=== PATIENT | female | born 1950 | race Caucasian/White ===

== ENCOUNTER 2021-05-07 10:15 | Outpatient (REF) | payer MEDICARE, SELFPAY | END 2021-05-07 10:16 | disposition home or self-care (01) | LOC: HO.HMGCLDS 10:15 | PROVIDERS: PCP Internal Medicine; Visit Provider Internal Medicine | DX: Z20.822 Contact with and (suspected) exposure to COVID-19 (principal) | CPT/HCPCS: C9803; U0003; U0005 ==

== ENCOUNTER 2021-05-08 10:48 | Outpatient (REF) | payer OTHER, MEDICARE, SELFPAY | END 2021-05-08 10:49 | disposition home or self-care (01) | LOC: HO.HMGCLDS 10:48 | PROVIDERS: Visit Provider Internal Medicine | DX: Z20.822 Contact with and (suspected) exposure to COVID-19 (principal) | CPT/HCPCS: C9803; U0003; U0005 ==

== ENCOUNTER 2024-12-21 08:55 | Outpatient (AMB) | payer MEDICARE, SELFPAY ==
--- OUTSIDE RECORDS SUMMARY | 2024-10-09 11:45 | XMS_ITS | Continuity of Care Document ---
Author Organization [facility] Address [address] [place] [address] Phone Care Team Providers Care Linen Worker Name Role Phone Lexx MONTESINOS, RVT, HILARIA, Nehemiah Unavailable U navailable Allergies, Adverse Reactions, Alerts Substance Reaction Status Criticality No Known Allergies Active No Inform ation Medications Medication Instructions Dosage Effective Dates (start - stop) Status Comments warfarin 5 mg tablet take 1 tablet by oral route every day 5 MG - Active albuterol sulfate 2 mg tablet - Active hydrochlorothiazide 12.5 mg capsule - Active metoprolol succinate ER 25 mg tablet,extended release 24 hr - Active lovastatin 10 mg tablet - Active Procedures Procedure Date Office/Outpt E&M Established 25 Mins- CT & [place] Duplex Scan-extrem Veins; Comp- [place] & [place] Duplex Scan-extrem Veins; Uni/ [place] & [place] A Varithena, Single Truncal Vein - [place] & [place] Duplex Scan-extrem Veins; Uni/ [place] & [place] A Varithena, Single Truncal Vein - [place] & [place] Offic/outpt E&m Estab 5 Min Trial- Telem edicine CT & [place] Office/Oupt E&M New Pt 30 Mins- CT & [place] Duplex Scan-extrem Veins; Comp- [place] & [place] Advance Directives Directive Yes / No Effective Date File Name Other Directive No 10/09/2024 N/A WARNING:The information contained in this section is historical and is provided for information only and does not constitute a legal document or any assurance that the information is still accurate. Please verify the information with the blankenship of the legal document before using it for clinical purposes. Encounters Encounter Description Practice Location Reason(s) For Visit Diagnoses Date Provider Providers Copied on Encounter Office/Outpt E&M Established 25 Mins- [place] & [place] [facility] KHANNA, [address] [place] [address] Dr Wiley [address] [place], [id number], [place] tel:[phone] [facility] Chronic venous hypertension (idiopathic) with other complication s of bilateral lower extremityLym phedema, not elsewhere classified 5 Lexx MONTESINOS RVT, RPVI Robert. [address] [place] [address], [place], [place], [id number] , [place]. tel:[phone] Referring Provider: Juanis Crawford MD, [address] [place] [address], [address]. tel:[phone] [facility], [address] [place] [address] Dr Wiley [address], [id number], [place] tel:[phone] [facility] Chronic venous hypertension (idiopathic) with other complication s of bilateral lower extremity 5 Lexx MONTESINOS RVT, RPVI Robert. [address] [place] [address], [place], [place], [id number] , [place]. tel:[phone] Referring Provider: Juanis Crawford MD, [address] [place] [address], [address]. tel:[phone] [facility], [address] [place] [address] Dr Wiley [address] [place], [id number], [place] tel:[phone] [facility] Encounter for follow-up examination after completed treatment for conditions other than malignant neoplasmChro karsten venous hypertension (idiopathic) with other complication s of left lower extremity 5 Lxex MONTESINOS RVT, RPVI Robert. [address] [place] [address], [place], [place], [id number] , [place]. tel:[phone] Referring Provider: Juanis Crawford MD, [address] [place] [address], [id number]. tel:[phone] [place] [address] [facility], [address] [place] [address] [facility] [address], [id number], [place] tel:[phone] [facility] - [place] - [facility] Varicose veins of left lower extremity with other complication s Sep-0 5 Lexx MONTESINOS RVT, HILARIA Cerna. [address] [place] [address], [place], [place], [id number] , [place]. [phone] Referring Provider: Juanis Crawford MD, [address] [place] [address], [address]. tel:[phone] [facility], [address] [place] [address] [facility] [address], [id number], [place] tel:[phone] [facility] [place] [facility] Encounter for follow-up examination after completed treatment for conditions other than malignant neoplasmPain in right leg 0 5 Lexx MONTESINOS RVT, HILARIA Cerna. [address] [place] [address], [facility], [place], [id number] , [place]. [phone] Referring Provider: Juanis Crawford MD, [address] [place] [address], [address]. tel:[phone] [place] [address] [facility], [address] [place] [address] [facility] [address], [id number], [place] tel:[phone] [facility] - [facility] Chronic venous hypertension (idiopathic) with inflammation of right lower extremity Aug-2 5 Lexx MONTESINOS RVT, HILARIA Cerna. [address] [place] [address], [place] [address], [place], [place], [id number] , [place]. [phone] Referring Provider: Juanis Crawford MD, [address] [place] [address], [address]. tel:[phone] [facility], [address] [place] [address] Dr Wiley [address], [id number], tel:[phone] CV - [facility] No Information 5 Lexx MONTESINOS RVT, HILARIA Cerna. [address] [place] [address], [place], [place], [id number] , [place]. tel:[phone] Offic/outpt E&m Estab 5 Min Trial- Telemedicine [place] & [place] [facility], [address] [place] [address] [place] Vergara [place], [id number], [place] tel:[phone] [facility] Chronic venous hypertension (idiopathic) with other complication s of bilateral lower extremityCra mp and spasmPruritu s, unspecified Fe 5 Luis Eduardo Leija . [address] [place] [address], [place], [place], [id number] , [place]. tel:[phone] Referring Provider: Juanis Crawford MD, [address] [place] [address], [address]. tel:[phone] [facility], [address] [place] [address] [place] Vergara [place], [id number], [place] tel:[phone] [facility] No Information 5 Lexx MONTESINOS RVT, RPVI Robert. [address] [place] [address], [place], [place], [id number] , [place]. tel:[phone] Office/Oupt E&M New Pt 30 Mins- [place] & [place] [facility], [address] [place] [address] [place] Vergara [place], [id number], [place] tel:[phone] [facility] of bilateral lower extremities with other complication sPruritus, unspecifiedC ramp and spasmLocaliz ed edema 5 eLxx MONTESINOS RVT, RPVI Robert. [address], [place], [place], [id number] , [place]. [phone] [facility], [address], [place], [id number], [place] tel:[phone] R - [facility] Varicose veins of bilateral lower extremities with pain Lexx MONTESINOS RVT, HILARIA Cerna. [address], [place], [place], [id number] , [place]. [phone] Referring Provider: Nehemiah Hallman MD, RVT, RPVI, [address] [place] [address], [address]. tel:[phone] Family History Family Member Type Diagnosis Age At Onset No Information Payers Payer name Insurance type Covered libertarian ID Authoriza jero(s) [employer] Medicare Advantage [id number] Social History Type Description Quantity Date Captured Comments Alcohol Use Details Unknown Caffeine Use Details Unknown Tobacco Use Status Current non-smoker Smoking Status Never Smoker Non-Smoking Tobacco Use Details : No Details Available : No Details Available Sex Female Vital Signs Date / Time: Height Weight BMI Pulse Rate Blood Pressure Temperature Respiratory Rate Body Surface Area Head Circumference Head Circ. Percentile Wt./Kvng. Percentile BMI percentile Pulse Ox Inhaled Ox 83.460 kg (184.00 lbs) 33.6 9 kg/m eter (2) 134/82 mm[Hg] Chief Complaint And Reason For Visit No Information Reason For Referral Reason For Referral No Information Plan Of Treatment Date Type Action Status Goal Diet education completed Goal Diet education completed Referral Ordered: Weight management: Referral to physician timeframe: 3 Months (related to Body mass index (BMI) 33.0-33.9, adult) ordered Referral Ordered: Weight management: Referral to physician timeframe: 3 Months (related to Body mass index (BMI) 33.0-33.9, adult) ordered History Of Present Illness Encounter Date Complaint History Of Prese nt Illness No Information Functional Status Date Functional Assessmen t No Information Instructions Date Instruction Additional Infor mation Diet education Related to Body mass index (BMI) 33.0-33.9, adult Patient education booklet given Related to Chronic venous hypertension (idiopathic) with other complications of bilateral lower extremity Lifestyle education Related to B didi mass index (BMI) 33.0-33.9, adult Giving Encouragement to exercise Related to Body mass index (BMI) 33.0-33.9, adult Pre and post instruc tions reviewed and provided Related to Chronic venous hypertension (idiopathic) with other complications of bilateral lower extremity Patient education booklet given Related to Chronic venous hypertension (idiopathic) with other complications of bilateral lower extremity Pre and post instruc tions reviewed and provided Related to Varicose veins of bilateral lower extremities with other complications Patient education booklet given Related to Varicose veins of bilateral lower extremities with other complications Lifestyle education Related to B didi mass index (BMI) 33.0-33.9, adult Giving Encouragement to exercise Related to Body mass index (BMI) 33.0-33.9, adult Diet education Related to Body mass index (BMI) 33.0-33.9, adult Assessments Type Assessment Date No Information Patient Care Teams Name Effective Dates (start - stop) Status Members No Information
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
--- OUTSIDE RECORDS SUMMARY | 2024-12-21 08:59 | XMS_ITS | Patient Health Record ---
Author Organization [facility] Address [address] [place] [phone] Care Team Providers Care Business Development Consultant Name Role Phone Nehemiah Sanford Unavailable [phone] Reason For Referral No Information Plan Of Treatment No Information
--- OUTSIDE RECORDS SUMMARY | 2024-12-21 08:59 | XMS_ITS | Patient Health Record ---
Author Organization [facility] Vinnie hallman [place] Address [address] [facility] [place] [address] Care Team Providers Care Quality Assurance Monitor Body Name Role Phone Juanis Crawford Primary Care Provider Unav ailable Black, Dacia Unavailable [phone] Allergies No Known Allergies Reason For Referral No Information Medications Medication SIG (Take, Route, Frequency, Duration) Notes Start Date End Date Status hydroCHLOROthiazide 25 MG 1 tablet in th e morning Orally Once a day Active Warfarin Sodium 5 MG 1 tablet Orally Onc e a day Active Lisinopril 40 MG 1 tablet Orally Once a day Active Ammonium Lactate 12 % 1 application Exte rnally Twice a day; Duration: 30 days Active Metoprolol Succinate 50 MG 1 capsule Ora lly Once a day Active Lovastatin 20 MG 1 tablet with the ev ening meal Orally Once a day Active Immunizations Vaccine Route Administration Date Status Comme nts Influenza Unknown 04/06/2024 Administered Social History Tobacco Use: Social History Observation Description Date Details (start date - stop date) Never Smoker NA - NA Tobacco Use/Smoking Question Answer Notes Are you a: nonsmoker Alcohol Screen Question Answer Notes Did you have a drink containing alcohol in the p ast year? No Points 0 Interpretation Negative Tobacco use other than smoking: Question Answer Notes Are you an other tobacco user? No Vital Signs Blood pressure diastolic 80 mm Hg 11/26/2024 Height 5ft2.5in in 11/26/2024 Blood pressure systolic 125 mm Hg 11/26/2024 Weight 195 lbs 11/26/2024 BMI 35.09 kg/m2 11/26/2024 Procedures Procedure Date Ordered Date Performed Result Body Sit e 12995-HYEPLGW NAIL, 6 OR MORE 02/16/2024 N/A 80496-Nfnhcjad Plate 02/16/2024 N/A 09451-ZXKQCGF NAIL, 6 OR MORE 05/21/2024 N/A 44704-Jbljioec Plate 05/21/2024 N/A 32876-SPCNYDT NAIL, 6 OR MORE 11/26/2024 N/A 32880-Nkerodvm Plate 11/26/2024 N/A Encounters Encounter Location Date Provider Diagnosis [address] [address] 02/16/2024 Dacia Black Pain in right toe(s) M79.674 ; Ingrown nail L60.0 ; Pain in left toe(s) M79.675 ; Xerosis of skin L85.3 and Tinea unguium B35.[address] [address] 05/21/2024 Dacia Black Pain in right toe(s) M79.674 ; Ingrown nail L60.0 ; Pain in left toe(s) M79.675 and Tinea unguium B35.[address] [address] 11/26/2024 Dacia Black Pain in right toe(s) M79.674 ; Ingrown nail L60.0 ; Pain in left toe(s) M79.675 and Tinea unguium B35.1 Assessments Encounter Date Diagnosis (ICD Code) Assessment Notes Treatment Notes Treatment Clinical Notes Section Notes 02/16/2024 Pain in right toe(s) (ICD-10 - M79.674) 05/21/2024 Pain in right toe(s) (ICD-10 - M79.674) 11/26/2024 Pain in right toe(s) (ICD-10 - M79.674) 11/26/2024 Ingrown nail (ICD-10 - L60.0) 05/21/2024 Pain in left toe(s) (ICD-10 - M79.675) 05/21/2024 Ingrown nail (ICD-10 - L60.0) 02/16/2024 Pain in left toe(s) (ICD-10 - M79.675) 02/16/2024 Ingrown nail (ICD-10 - L60.0) 02/16/2024 Xerosis of skin (ICD-10 - L85.3) 05/21/2024 Tinea unguium (ICD-10 - B35.1) 11/26/2024 Pain in left toe(s) (ICD-10 - M79.675) 11/26/2024 Tinea unguium (ICD-10 - B35.1) 02/16/2024 Tinea unguium (ICD-10 - B35.1) Plan Of Treatment Pending Test Test Name Order Date 88435-WINTERN NAIL, 6 OR MORE 07/21/2023 35284-XBDULSS NAIL, 6 OR MORE 10/24/2023 09852-XLQMDTX NAIL, 6 OR MORE 02/16/2024 65802-IKZNMMK NAIL, 6 OR MORE 05/21/2024 61781-IQIUXKG NAIL, 6 OR MORE 11/26/2024 64206-Sbkratvo Plate 11/26/2024 90261-Xbzuobie Plate 05/21/2024 00751-Uzmhlejj Plate 02/16/2024 32931-Aujuphhp Plate 10/24/2023 Nail Panel 07/21/2023 Next Appt Details Provider Name:Dacia Valenzuela , 02/25/2025 02:30:00 PM, [address] [facility], [place], [address], Insurance Providers Payer Name Payer Address Payer Phone Subscriber Number Group Number Insured Name Patient Relationship to Insured Coverage Start Date Coverage End Date [employer] Medicare [id number] [address] [address] [place] [address] [id number] Ghazala Ruano Self - patient is the insured Medical (General) History Medical History History ICD Code Back,Hip,and Knee pain CAD (Cholesterol) covid-19 Headaches/Migraines Heart disease High blood pressure Warts Measles A fib Other hammer toe(s) (acquired), right fo ot M20.41 Arthritis of joint of lesser toe, right M19.071 Other hammer toe(s) (acquired), left lilibeth t M20.42 Arthritis of joint of lesser toe, left M 19.072 Surgical History Surgery Date(Month/Year) Heart procedure 03/29
[2024-12-21 09:35] VITALS: BP 122/100; PULSE 64; TEMP 36.4; O2SAT 98; BMI 33.8
--- NOTE | 2024-12-21 09:35 | MHC.OFFWIV ---
Intake Vital Signs 12/21/24 09:35 12/21/24 09:42 Height 5 ft 2.5 in Weight 188 lb BMI 33.8 BP 122/100 H 130/90 H Blood Pressure Location Rt brachial Lt brachial Position Sitting Sitting Pulse 64 Pulse Source Pulse Oximeter Temp 97.6 F Temp Source Oral Pulse Oximetry (%) 98 Oxygen Delivery Method Room Air Intake Visit Reasons: EP Upper RT thigh/back pain Intake Note: presents with right leg pain radiating up to right hip and into right low back Patient Tobacco Use Status: Never used Tobacco Allergies No Known Allergies Allergy (Verified 12/21/24 09:36) HPI EP Upper RT thigh/back pain HPI Details This is a 74-year-old female patient who presents to the walk-in clinic today with a 1-2 week history of right buttock and right leg pain. She cannot recall any injury or inciting event. Reports some lateral thigh pain which seems to radiate into her right buttock. Denies any saddle anesthesia. Denies any numbness, weakness or sensation of pins/needles in leg. [facility] Social History Patient Tobacco Use Status: Never used Tobacco Review of Systems Const All systems reviewed & are unremarkable except as noted in HPI and below Physical Exam Vital Signs: Last Vital Signs Temp 97.6 F 12/21/24 09:35 Pulse 64 12/21/24 09:35 BP 124/100 H 12/21/24 09:42 Pulse Ox 98 12/21/24 09:35 Oxygen Delivery Method Room Air 12/21/24 09:35 BMI result Body Mass Index 33.8 Const General: cooperative, healthy appearing, comfortable and no acute distress HEENT Head: Yes normal to inspection Resp Effort & Inspection: normal respiratory effort General: Yes no CVA tenderness Back/Spine/Pelvis Back: no CVA tenderness Cervical Spine: normal cervical lordosis and cervical ROM normal Thoracic/Lumbar Spine: thoracic and lumbar spine normal to inspection, thoraco-lumbar ROM normal and straight leg raise negative bilaterally Sacroiliac joints: on the right tender to palpation and by compression of iliac crest Skin General skin exam: no rashes or lesions noted Neuro Other: gait mildly antalgic General: Normal light touch and pain sensation and deep tendon reflexes 2+ bilaterally Extrem Right lower extremity: full ROM, normal capillary refill, no joint enlargement, hip/thigh Details: normal to inspection and normal ROM and knee Details: normal to inspection and normal ROM Psych Appearance: grossly normal Mental Status: mental status grossly normal Speech and movement: Normal speech and movement present Assessment & Plan Assessment & Plan (1) Inflammation of right sacroiliac joint: Code(s): M46.1 - Sacroiliitis, not elsewhere classified Plan: Patient does have some right sacroiliac joint dysfunction on the right side. It is unclear if this is the source of her radiating right thigh pain. It does not appear to be a lumbar radiculopathy. Additionally, her hip and knee exams are normal. She does not wish to have any x-rays today. I provided her with some conservative measures to take, including the SI joint stretches/exercises to do at home. She can also try ice application and also Tylenol (cannot take NSAIDs). She has a PCP appointment next month and will f/u on these issues at that time if they are still ongoing. Should they worsen in the meantime, she can return to the clinic for further evaluation. Patient verbalizes understanding and agrees to plan discussed today. Coding Level of Care Code Est Pt Level 4 (59691) Diagnoses Inflammation of right sacroiliac joint M46.1
[2024-12-21 09:42] VITALS: BP 130/90
== END 2024-12-21 10:24 | disposition home or self-care (01) ==
PROVIDERS: PCP Family Medicine; Visit Provider Nurse Practitioner Family
DX: M46.1 Sacroiliitis, not elsewhere classified (principal)

== ENCOUNTER → 2024-12-21 08:55 | Outpatient (BNVA) | payer MEDICARE, SELFPAY | PROVIDERS: PCP Family Medicine | DX: M46.1 Sacroiliitis, not elsewhere classified (principal) | CPT/HCPCS: 99212 ==

== ENCOUNTER 2025-03-11 09:47 | Outpatient (AMB) | payer MEDICARE, SELFPAY ==
--- OUTSIDE RECORDS SUMMARY | 2024-08-27 06:00 | XMS_ITS ---
Author Organization [facility] Address [address] [place] [address] Care Team Providers Care Scale Clerk Name Role Phone Juanis Crawford Primary Care Provider Unav ailable Dacia Valenzuela Unavailable [phone] Lynch Encounters Encounter Location Date Provider Diagnosis [address] [address] 08/27/2024 Dacia Valenzuela Plan Of Treatment Next Appt Details Provider Name:Dacia Valenzuela , 07/01/2025 01:30:00 PM, [address] [place] [address], [phone], Progress Notes * Ghazala RUANODOB: (74 yo F)Acc No.[id number]:08/27/2024 Progress Note Patient: Ghazala GREY Provider: Everett Valenzuela DPM :1950 A ge:74 Y S ex:Female Date:08/27/2024 Address:[address], [place] Pcp:Juanis Crawford Subjective: * Chief Complaints: * [address] Lynch[address] * Medical History: Objective: * Vitals: Assessment: Plan: * Treatment: * Images: * The named appointment provid er may or may not be the originator of this progress note, and it is not deemed complete until electronically signed by the appointment provider. Sign off status: Pending * Provider: Everett Valenzuela DPM Date: 0 08/27/2024 Generated for Roslyn enrqiuez/Farrah/Abdirahman on: 1 11:13 AM EDT
[2025-03-11 10:44] VITALS: BP 146/90; PULSE 83; TEMP 36.4; O2SAT 97; BMI 33.8
--- NOTE | 2025-03-11 10:44 | AM.OFFWIN_ITS ---
Intake Vital Signs 03/11/25 10:44 Height 5 ft 2.5 in Weight 188 lb BMI 33.8 BP 146/90 H Blood Pressure Location Rt brachial Position Sitting Pulse 83 Pulse Source Pulse Oximeter Temp 97.6 F Temp Source Oral Pulse Oximetry (%) 97 Oxygen Delivery Method Room Air Intake Visit Reasons: EP-sciatica pain Intake Note: pt presents with bilateral sciatica pain for 1 month Patient Tobacco Use Status: Never used Tobacco Allergies No Known Allergies Allergy (Verified 03/11/25 10:50) Do you need a note to return to daycare/school/sports/work: No HPI HPI Comments History of Present Illness Details 74 y/o Female patient who presents to [facility] in clinic with c/o Lower back pain associated with B/L Sciatica Pain x 1 month. Her PCP at [facility] has Ordered an MRI for Tomorrow. She did not want to wait until tomorrow for the MRI due to severe pain. She has been taking OTC pain relief medications with no much relief. Denies injury or trauma to the back. Denies Numbness or tingling. Denies Bowel or bladder symptoms. [facility] Medical History (Updated 03/11/25 @ 11:10 by Adore Simpson NP) Chronic back pain Social History Patient Tobacco Use Status: Never used Tobacco Review of Systems Const All systems reviewed & are unremarkable except as noted in HPI and below Physical Exam Vital Signs: Last Vital Signs Temp 97.6 F 03/11/25 10:44 Pulse 83 03/11/25 10:44 BP 146/90 H 03/11/25 10:44 Pulse Ox 97 03/11/25 10:44 Oxygen Delivery Method Room Air 03/11/25 10:44 BMI result Body Mass Index 33.8 Const General: no acute distress Nutritional Appearance: obese Orientation/consciousness: patient oriented x3 Limitations: ambulation with cane Back/Spine/Pelvis Back: back tenderness Thoracic/Lumbar Spine: pain with thoraco-lumbar ROM, thoracic spinal tenderness and lumbar spinal tenderness Neuro General: patient oriented x3, gait normal (Walks with a Cane.) and moves all extremities Psych Speech and movement: Normal speech and movement present Assessment & Plan Assessment & Plan (1) Chronic back pain: Code(s): M54.9 - Dorsalgia, unspecified; G89.29 - Other chronic pain Plan: Acetaminophen and NSAIDs for pain relief Ice/Heat Rest Back F/u with PCP for the MRI and possible PT. Coding Level of Care Code Est Pt Level 4 (03245) Diagnoses Chronic back pain M54.9; G89.29 Time Spent (min) 20
--- OUTSIDE RECORDS SUMMARY | 2025-03-11 11:13 | XMS_ITS | Encounter Summary ---
Author Organization [facility] Address [address] [place] [address] Care Team Providers Care Activity Leader Name Role Phone Juanis Crawford MD Primary Care Pr ovid Reason for Visit * Reason Onset Date Comments Medication Problem 03/08/2025 Encounter Details Date Type Department Care Team ([facility] Contact Info) Description 03/08/2025 Telephone Adult Medicine [address] [address] Sri James MA Social History Tobacco Use Types Packs/Day Years Used Date Smoking Tobacco: Never Passive Smoke Exposure: Never Smokeless Tobacco: Never Alcohol Use Standard Drinks/Week Comments Never 0 (1 standard drink = 0.6 oz pur e alcohol) Comments No Sex and Gender Information Value Date Recorded Sex Assigned at Not on file Legal Sex Female 5:47 PM EST Gender Identity Not on file Sexual Orientation Not on file documented as of this encounter Progress Notes * Sri James MA - 03/08/2025 9:47 AM EDT Medication Problem: What is the name of the medication patient is having a problem with?: TYLENOL 500 MG What is the problem?: Tylenol is not working for her Sciatica Pain Who is calling about the problem? : The patient Is this a NEW medication?: no How long has the patient been taking this medication? A long time Who prescribed this medication for the patient? pcp Who is patients PCP?: Juanis Crawford MD Payor: [employer] MEDICARE / Plan: [facility] MEDIC[facility] ADVANTAGE / Product Type: *No Product type* / documented in this encounter Plan of Treatment Upcoming Encounters Date Type Department Care Team (Late st Contact Info) Description 03/14/2025 1:40 PM EDT Anticoagulation - Warfarin Visit Coumadin Clinic - [address] [phone] 05/20/2025 9:00 AM EST Office Visit Adult Medicine [facility] - [address] [phone] Juanis Crawford MD [address] [place] [address] 07/10/2025 10:00 AM EST Appointment Radiology Department - [address] [phone] documented as of this encounter Visit Diagnoses Not on filedocumented in this encounter Care Teams Activity Leader Relationship Specialty Start Date End Date uJanis Crawford MD [address] [place] [address] PCP - General 08/05/22 documented as of this encounter
--- OUTSIDE RECORDS SUMMARY | 2025-03-11 11:13 | XMS_ITS ---
[facility] Care Team Organization Name Specialty Phone Email Start Date End Da te [facility] JUAN ABHIJEET Primary Care 04/13/2022 4
--- OUTSIDE RECORDS SUMMARY | 2025-03-11 11:13 | XMS_ITS | Patient Health Record ---
Author Organization [facility] Vinnie Garcialey Address [address] [facility] [place] [address] Care Team Providers Care In Store Banker Name Role Phone Juanis Crawford Primary Care Provider Unav ailable Black, Dacia Unavailable [phone] Allergies No Known Allergies Reason For Referral No Information Medications Medication SIG (Take, Route, Frequency, Duration) Notes Start Date End Date Status Ammonium Lactate 12 % 1 application Exte rnally Twice a day; Duration: 30 days Active Warfarin Sodium 5 MG 1 tablet Orally Onc e a day Active Metoprolol Succinate 50 MG 1 capsule Ora lly Once a day Active Lovastatin 20 MG 1 tablet with the ev ening meal Orally Once a day Active Lisinopril 40 MG 1 tablet Orally Once a day Active hydroCHLOROthiazide 25 MG 1 tablet in th e morning Orally Once a day Active Immunizations Vaccine Route Administration Date Status Comme nts Influenza Unknown 04/06/2024 Administered Social History Tobacco Use: Social History Observation Description Date Details (start date - stop date) Never Smoker NA - NA Alcohol Screen Question Answer Notes Did you have a drink containing alcohol in the p ast year? No Points 0 Interpretation Negative Tobacco use other than smoking: Question Answer Notes Are you an other tobacco user? No Tobacco Control (Standard) Question Answer Notes Tobacco use: Nonsmoker Additional Findings: Tobacco non-user Current no nsmoker AUDIT-C (Standard) Question Answer Notes Did you have a drink containing alcohol in the p ast year? No Points 0 Interpretation Negative Problems Problem Type SNOMED Code ICD Code Onset Dates Problem Status W/U Status Risk Notes Problem Plantar wart (86911942) Plantar wart (B07.0) Active confirmed Vital Signs Blood pressure diastolic 70 mm Hg 02/25/2025 Height 5ft 2.5in in 02/25/2025 Blood pressure systolic 127 mm Hg 02/25/2025 Weight 187 lbs 02/25/2025 BMI 33.65 kg/m2 02/25/2025 Procedures Procedure Date Ordered Date Performed Result Body Sit e 58207-KJPBKUC NAIL, 6 OR MORE 05/21/2024 N/A 48977-Oddziphm Plate 05/21/2024 N/A 43597-WRXLGEM NAIL, 6 OR MORE 11/26/2024 N/A 21223-Lrqkunod Plate 11/26/2024 N/A 95687-YPUWYIM NAIL, 6 OR MORE 02/25/2025 N/A 99775-Klnu Destruction, 1-14 02/25/2025 N/A Encounters Encounter Location Date Provider Diagnosis [address] [address] 05/21/2024 Dacia Black Pain in right toe(s) M79.674 ; Ingrown nail L60.0 ; Pain in left toe(s) M79.675 and Tinea unguium B35.[address] [address] 11/26/2024 Dacia Black Pain in right toe(s) M79.674 ; Ingrown nail L60.0 ; Pain in left toe(s) M79.675 and Tinea unguium B35.[address] [address] 02/25/2025 Dacia Black Pain in right toe(s) M79.674 ; Pain in left toe(s) M79.675 ; Tinea unguium B35.1 and Plantar wart B07.0 Assessments Encounter Date Diagnosis (ICD Code) Assessment Notes Treatment Notes Treatment Clinical Notes Section Notes 05/21/2024 Pain in right toe(s) (ICD-10 - M79.674) 11/26/2024 Pain in right toe(s) (ICD-10 - M79.674) 02/25/2025 Pain in right toe(s) (ICD-10 - M79.674) 02/25/2025 Pain in left toe(s) (ICD-10 - M79.675) 11/26/2024 Ingrown nail (ICD-10 - L60.0) 05/21/2024 Pain in left toe(s) (ICD-10 - M79.675) 05/21/2024 Ingrown nail (ICD-10 - L60.0) 05/21/2024 Tinea unguium (ICD-10 - B35.1) 11/26/2024 Pain in left toe(s) (ICD-10 - M79.675) 02/25/2025 Tinea unguium (ICD-10 - B35.1) 11/26/2024 Tinea unguium (ICD-10 - B35.1) 02/25/2025 Plantar wart (ICD-10 - B07.0) Plan Of Treatment Pending Test Test Name Order Date 52090-BICADYZ NAIL, 6 OR MORE 07/21/2023 94449-RNBJVRQ NAIL, 6 OR MORE 10/24/2023 98928-DSTEDAR NAIL, 6 OR MORE 02/16/2024 91203-VHTPVBA NAIL, 6 OR MORE 05/21/2024 60355-NQIPIIG NAIL, 6 OR MORE 11/26/2024 16414-ILSGGZS NAIL, 6 OR MORE 02/25/2025 92853-Ylof Destruction, 1-14 02/25/2025 99458-Bwiopyly Plate 11/26/2024 39726-Xrtvihbv Plate 05/21/2024 14938-Axobjbid Plate 02/16/2024 13958-Jzznfvvg Plate 10/24/2023 Nail Panel 07/21/2023 Next Appt Details Provider Name:Dacia Valenzuela , 07/01/2025 01:30:00 PM, [address] [facility], [place], [address], Insurance Providers Payer Name Payer Address Payer Phone Subscriber Number Group Number Insured Name Patient Relationship to Insured Coverage Start Date Coverage End Date [employer] Medicare [id number] [address] [address] [place] [address] [id number] Ghazala Ruano Self - patient is the [...]
--- OUTSIDE RECORDS SUMMARY | 2025-03-11 11:13 | XMS_ITS | Clinical Summary ---
Author Organization [address] [facility] Address [address] [place] [address] Phone Care Team Providers Care Health Education Director Name Role Phone Juanis Crawford MD Primary Care Pr ovider Allergies Active Allergy Reactions Criticality Noted Date Comments Pollen Extracts 11/16/2017 Seasonal Medications calcium carbonate/vitam in D3 (CALCIUM 600 + D,3, ORAL) 2 tabs daily 09/04/19 08 Active albuterol HFA (PROAIR HFA ; PROVENTIL HFA ; VENTOLIN HFA) 90 mcg/actuation inhaler Inhale 2 puffs by mouth every 6 (six) hours if needed for wheezing. Active warfarin (COUMADIN) 5 mg tablet TAKE ONE TABLET BY MOUTH EVERY DAY AT THE SAME TIME EVERY DAY. MAY CAUSE HEAVY BLEEDING. DO NOT CHANGE DIETARY HABITS (VIAL) 30 tablet 5 06/06/19 25 Active Additional Information Patient taking differently: Managed by [facility], Informant: Self, Reported on 02/22/2025 hydroCHLOROthia zide (HYDRODIURIL) 25 mg tablet TAKE ONE TABLET BY MOUTH EVERY DAY ^1R1 30 tablet 5 12/05/19 25 Active lisinopril (PRINIVIL,ZESTR IL) 40 mg tabletIndicatio ns:Primary hypertension Take 1 tablet (40 mg total) by mouth 1 (one) time each day. 90 each 1 01/18/20 25 026 Active metoprolol succinate (TOPROL-XL) 50 mg 24 hr tabletIndicatio ns:Primary hypertension,At rial flutter, unspecified type (CMS/HCC V24, CMS/HCC V28),Atrial fibrillation, unspecified type (CMS/HCC V24, CMS/HCC V28) Take 1 tablet (50 mg total) by mouth 1 (one) time each day. Do not crush or chew. 90 each 1 01/18/20 25 026 Active acetaminophen (TYLENOL) 500 mg tablet Take 2 tablets (1,000 mg total) by mouth every 6 (six) hours if needed. 01/22/20 25 Active lovastatin (MEVACOR) 20 mg tablet TAKE ONE TABLET BY MOUTH AT BEDTIME ^1R4 30 tablet 5 03/08/20 25 Active lovastatin (MEVACOR) 20 mg tablet TAKE ONE TABLET BY MOUTH AT BEDTIME ^1R4 90 tablet 1 10/11/19 25 025 Discontinued Active Problems Problem Noted Date Diagnosed Date Acute midline low back pain without sciatica 07/2024 Assessment & Plan (02/05/2025 4:10 PM EDT): Ms. Ruano describes acute on chronic midline low back pain without radiation to the legs. She denies any significant leading up to the increase in pain trauma. She is neurologically intact and has pain with palpation from L3-L5. She ambulates with the aid of a quad cane that she says she does not need for balance but using it does aleviate her back pain. X-rays of the lumbar spine from [facility] dated January 17, 2025 raise the question of the superior endplate compression fracture at L3. She is scheduled for a bone density scan later this week. We talked about compression fractures and the possibility of treatment with a kyphoplasty if the fracture was acute or subacute. I will order an MRI to determine the acuity of the compression fracture and otherwise evaluate her back pain. I told her I would be in touch once the results were available. Compression fracture of L3 lumbar vertebra, sequ иван 01/18/2025 Spinal stenosis of lumbar re gion with neurogenic claudication 01/18/2025 Primary osteoarthritis of right hip 01/18/2025 Venous insufficiency (chronic) (peripheral) 01/04 Assessment & Plan (01/17/2025 1:51 PM EDT): Continue compression stockings prison (current) use of anticoagulants 2023 Restrictive lung disease 03/13/2024 Assessment & Plan (01/17/2025 1:51 PM EDT): Continue albuterol as needed Atrial flutter (CMS/HCC V24, CMS/HCC V28) 2022 Assessment & Plan (01/17/2025 1:51 PM EDT): Continue metoprolol and Coumadin. She has an appointment with the Coumadin clinic today. She will follow-up with cardiology as scheduled next month Orders: metoprolol succinate (TOPROL-XL) 50 mg 24 hr tablet; Take 1 tablet (50 mg total) by mouth 1 (one) time each day. Do not crush or chew. Atrial fibrillation (CMS/HCC V24, CMS/HCC V28) 1 Overview (04/24/2024): Anticoagulated with Coumadin Assessment & Plan (01/17/2025 1:51 PM EDT): Continue metoprolol and Coumadin. She has an appointment with the Coumadin clinic today. She will follow-up with cardiology as scheduled next month Orders: metoprolol succinate (TOPROL-XL) 50 mg 24 hr tablet; Take 1 tablet (50 mg total) by mouth 1 (one) time each day. Do not crush or chew. Assessment & Plan (06/18/2024 11:13 AM EST): [...] the future. Hyperlipidemia 07/28/2009 Assessment & Plan (01/17/2025 1:51 PM EDT): Continue lovastatin 20 mg nightly. Due for labs which are ordered Orders: Lipid panel with reflex to direct LDL; Future Comprehensive metabolic panel; Future Assessment & Plan (04/24/2024 12:02 PM EST): Well-controlled lipid profile on current dose lovastatin without known coronary artery disease. Continue Hypertension 04/18/2009 Assessment & Plan (01/17/2025 1:51 PM EDT): Well-controlled. Continue lisinopril, metoprolol and hydrochlorothiazide 25 mg daily Orders: lisinopril (PRINIVIL,ZESTRIL) 40 mg tablet; Take 1 tablet (40 mg total) by mouth 1 (one) time each day. metoprolol succinate (TOPROL-XL) 50 mg 24 hr tablet; Take 1 tablet (50 mg total) by mouth 1 (one) time each day. Do not crush or chew. Assessment & Plan (06/18/2024 11:13 AM EST): [...] inhibitor and diuretic. Increase beta-yolie as below Obesity (BMI 30.0-34.9) 09/17/2008 Overview (08/04/2023): Last Assessment & Plan: [...] As well as directed her to the [place] [employer] website for dietary suggestions. We discussed reading labels following a low-sodium diet as well as avoiding simple carbohydrates and processed foods. Primary osteoarthritis of right knee 09/17/2008 Encounters Date Type Department Care Team Description 03/08/2025 Telephone Adult Medicine [address] [phone] Sri James MA 02/22/2025 1:30 PM EDT Office Visit [facility] [address] [facility] [address] [place] [address] Thais Helm MD Longstanding persistent atrial fibrillation (CMS/HCC V24, CMS/HCC V28) (Primary Dx); Pure hypercholesterolemia ; Primary hypertension; Venous insufficiency (chronic) (peripheral) 02/14/2025 1:40 PM EDT Anticoagulation - Warfarin Visit [facility] - [address] [phone] Atrial fibrillation, unspecified type (CMS/HCC V24, CMS/HCC V28) (Primary Dx); prison (current) use of anticoagulants 02/13/2025 2:21 PM EDT - 02/13/2025 11:59 PM EDT Hospital Encounter Bone Density - [address] [phone] Osteoporosis screening; Asymptomatic menopausal state Discharge Disposition: Home or Self Care 02/05/2025 2:30 PM EDT Consult Neurosurgery [place] [address] [phone] Tien Luque PA Acute midline low back pain without sciatica (Primary Dx); Compression fracture of L3 lumbar vertebra, sequela 01/18/2025 Telephone Adult Medicine [address] [phone] Juanis Crawford MD 01/17/2025 2:20 PM EDT - 01/17/2025 11:59 PM EDT Hospital Encounter XRAY - [address] [phone] Chronic right-sided low back pain with right-sided sciatica Discharge Disposition: Home or Self Care 01/17/2025 2:19 PM EDT - 01/17/2025 11:59 PM EDT Hospital Encounter XRAY [address] [phone] Right hip pain Discharge Disposition: Home or Self Care 01/17/2025 2:19 PM EDT - 01/17/2025 11:59 PM EDT Hospital Encounter XRAY [address] [phone] Chronic pain of right knee Discharge Disposition: Home or Self Care 01/17/2025 1:40 PM EDT Anticoagulation - Warfarin Visit Coumadin [address] [phone] Atrial fibrillation, unspecified type (CMS/HCC V24, CMS/HCC V28) (Primary Dx); prison (current) use of anticoagulants 01/17/2025 12:45 PM EDT Office Visit [address] [phone] Juanis Crawford MD Primary hypertension (Primary Dx); Atrial flutter, unspecified type (CMS/HCC V24, CMS/HCC V28); Atrial fibrillation, unspecified type (CMS/HCC V24, CMS/HCC V28); Mixed hyperlipidemia; Restrictive lung disease; Chronic right-sided low back pain with right-sided sciatica; Right hip pain; Chronic pain of right knee; Osteoporosis screening; Asymptomatic menopausal state; Venous insufficiency (chronic) (peripheral) 01/17/[address] [phone] Juanis Crawford MD 12/31/2024 2:30 PM EDT Anticoagulation - Warfarin Visit [facility] [address] [phone] Atrial fibrillation, unspecified type (CMS/HCC V24, CMS/HCC V28) (Primary Dx); manager terminal (current) use of anticoagulants 12/17/2024 2:30 PM EDT Anticoagulation - Warfarin Visit Coumadin [address] [phone] Atrial fibrillation, unspecified type (CMS/HCC V24, CMS/HCC V28) (Primary Dx); prison (current) use of anticoagulants 12/10/2024 2:30 PM EDT Anticoagulation - Warfarin Visit Coumadin [address] [phone] Atrial fibrillation, unspecified type ([facility] V24, [facility] V28) (Primary Dx); prison (current) use of anticoagulants from Last 3 Months Immunizations Immunization Administration Dates Next Due Influenza Quadravalent, MDCK [...] Site/Laterality Comments CARDIOVERSION DONE ON 03/16/2024 AT [facility] CR INDICATIONS:AFIB Medical History Medical History Date Comments Obstructive sleep apnea syndrome 01/30/2024 [place] [place] [facility] [place] 1 Atrial flutter ([facility] V24, [facility] V28) 2022 Hyperlipidemia 07/28/2009 Hypertension 04/18/2009 Obesity [...] Sign Reading Time Taken Comments Blood Pressure 124/72 02/22/2025 1:19 PM EDT Pulse 87 02/22/2025 1:19 PM EDT Temperature 36.9 C (98.5 F) 01/17/2025 1:02 PM EDT Respiratory Rate 16 01/17/2025 1:02 PM EDT Oxygen Saturation 97% 02/22/2025 1:19 PM EDT Inhaled Oxygen Concentration - - Weight 86.1 kg (189 lb 12.8 oz) 02/22/2025 1:19 PM EDT Height 157.5 cm (5' 2 ) 02/22/2025 1:19 PM EDT Body Mass Index 34.71 02/22/2025 1:19 PM EDT Plan of Treatment Upcoming Encounters Date Type Department Care Team (Late st Contact Info) Description 03/14/2025 1:40 PM EDT Anticoagulation - Warfarin Visit Coumadin [address] [phone] 05/20/2025 9:00 AM EST Office Visit Adult Medicine [address] [phone] Juanis Crawford MD [address] [place] [phone] 07/10/2025 10:00 AM EST Appointment Radiology Department - [address] [phone] Health Maintenance Due Date Last Done Comments Zoster Vaccines (1 of 2) 2000 Falls Risk Assessment 05/15/2022 Medicare Annual Wellness Visit 05/15/2022 Social Influencers of Health Screening 05/15/2022 Depression Screening 06/06/2024 COVID-19 Vaccine ( season) 2025 06/15/2024, 03/22/2023, 07/24/2022, Additional history exists Influenza Vaccine (#1) 2025 , 02/18/2023, 07/07/2022, Additional history exists RSV Immunization Adult Patients (1 - 1-dose 75+ series) 2025 Hypertension/CHF/CAD Annual BMP Blood Test 01/17/2026 01/17/2025, 03/09/2024, 03/09/2024, Additional history exists Colorectal Cancer Screening: Colonoscopy 01/20/2026 01/21/2016 Breast Cancer Screening 07/07/2026 07/07/19, 06/11/2023, 06/05/2022, Additional history exists Cholesterol Screening (Lipid Panel) 01/17/2030 01/17/2025, 02/10/2024, 02/10/2024, Additional history exists DTaP,Tdap,and Td Vaccines (3 - Td or Tdap) 2033 2023, 03/09/2013 Osteoporosis Screening (Bone Density Screening) 02/13/2035 02/13/2025, 04/17/2018 Hepatitis C Screening Completed 10/20/2013 Pneumococcal Vaccine: [...] Diagnosis Comments POC PROTIME INR BLOOD Routine 02/14/2025 Atrial fibrillation, unspecified type (CMS/HCC V24, CMS/HCC V28) prison (current) use of anticoagulants BD BONE DENSITY DXA AXIAL SKELETON Routine 02/13/2025 2:54 PM EDT Osteoporosis screening Asymptomatic menopausal state XR LUMBAR SPINE 4+ VIEWS Routine 01/17/2025 2:44 PM EDT Chronic right-sided low back pain with right-sided sciatica XR HIP 2-3 VIEWS RIGHT Routine 01/17/2025 2:44 PM EDT Right hip pain XR KNEE 4+ VIEWS RIGHT Routine 01/17/2025 2:44 PM EDT Chronic pain of right knee LIPID PANEL WITH REFLEX TO DIRECT LDL Routine 01/17/2025 1:57 PM EDT Mixed hyperlipidemia COMPREHENSIVE METABOLIC PANEL Routine 01/17/2025 1:57 PM EDT Mixed hyperlipidemia POC PROTIME INR BLOOD Routine 01/17/2025 Atrial fibrillation, unspecified type (CMS/HCC V24, CMS/HCC V28) prison (current) use of anticoagulants POC PROTIME INR BLOOD Routine 12/31/2024 Atrial fibrillation, unspecified type (CMS/HCC V24, CMS/HCC V28) prison (current) use of anticoagulants POC PROTIME INR BLOOD Routine 12/17/2024 Atrial fibrillation, unspecified type (CMS/HCC V24, CMS/HCC V28) prison (current) use of anticoagulants POC PROTIME INR BLOOD Routine 12/10/2024 Atrial fibrillation, unspecified type (CMS/HCC V24, CMS/HCC V28) manager terminal (current) use of anticoagulants MG MAMMO DIGITAL SCREENING W ARIEL BILAT Routine 07/07/2024 10:33 AM EST Encounter for screening mammogram for breast cancer HM HEPATITIS C SCREENING Routine 10/20/2013 from Last 3 Months or Most Recently Relevant to Health Maintenance Results * POC Protime INR Blood (02/14/2025) Only the most recent of5 resultswithin the time period is included. Lot Number INR POC 2.0 Prothrombin Time POC Exp Date Blood 02/14/2025 Juanis Crawford MD POINT OF CARE TEST ENTER/EDIT ORDERABLES Final Result * BD Bone Density DXA Axial Skeleton (02/13/2025 2:54 PM EDT) Anatomical Region Laterality Modality Wrist, Hip, L-spine Bone Densito metry 02/19/2025 2:38 PM EDT Impressions 02/19/2025 2:40 PM EDT Normal bone mineral density by WHO criteria. The [facility] Department of Internal Medicine recommends using National Osteoporosis Foundation (NOF) guidelines in treatment decisions related to osteoporosis. NOF guidelines suggest considering treatment for postmenopausal women and men aged 50 or older presenting with the following: History of hip or vertebral fracture. T-score = -2.5 (DXA) at the femoral neck, total hip, or spine, after appropriate evaluation to exclude secondary causes. Low bone mass (T-score between -1.0 and -2.5 at the femoral neck or spine) AND a 10-year probability of a hip fracture = 3% OR a 10-year probability of a major osteoporosis-related fracture = 20% based on the [place]-adapted WHO algorithm Please note that all treatment decisions require clinical judgment and consideration of individual patient factors, including patient preferences, co-morbidities, previous drug use, risk factors not captured in the FRAX model (e.g., frailty, falls, vitamin D deficiency, increased bone turnover, interval significant decline in bone density) and possible under- or over-estimation of fracture risk by FRAX. Optional alternative screening schedule based on eric Gómez., [facility] June 24, 2011 for patients with osteopenia (based on hip BMD T-score) is as follows: * advanced osteopenia (T scores -2.00 to -2.49), BMD testing every year * moderate osteopenia (T scores -1.50 to -1.99), BMD testing every 5 years mild osteopenia or normal BMD (T scores -1.50 and higher), BMD testing every 15 years -------- FINAL REPORT -------- Dictated By: Alina Nicole Dictated Date: 02/19/2025 14:38 ET Assigned Physician: Alina Nicole Reviewed and Electronically Signed By: Alina Nicole Signed Date: 02/19/2025 14:40 ET Workstation ID: [id number] Transcribed By: Self Edit Transcribed Date: 02/19/2025 14:38 ET Narrative 02/19/2025 2:40 PM EDT BONE DENSITY SCAN (DEXA): FINDINGS: Lumbar Spine T-score is -0.3. (SD relative to 20-29 y/o adult) Z-score is 2.1. (SD relative to age matched peers) This is considered normal by WHO criteria. Left Hip T-score is -0.4. Z-score is 1.6. This is considered normal by WHO criteria. Comparison exam(s): 04/17/2018. 4.6% increase in lumbar spine bone mineral density which is statistically significant at the 95% confidence level. No statistically significant change in left hip bone mineral density. Procedure Note Alina Nicole MD - 02/19/2025 BONE DENSITY SCAN (DEXA): FINDINGS: Lumbar Spine T-score is -0.3. (SD relative to 20-29 y/o adult) Z-score is 2.1. (SD relative to age matched peers) This is considered normal by WHO criteria. Left Hip T-score is -0.4. Z-score is 1.6. This is considered normal by WHO criteria. Comparison exam(s): 04/17/2018. 4.6% increase in lumbar spine bonemineral density which is statistically significant at the 95% confidencelevel. No statistically significant change in left hip bone mineraldensity. IMPRESSION: Normal bone mineral density by WHO criteria. The [facility] Department of Internal Medicine recommendsusing National Osteoporosis Foundation (NOF) guidelines in treatmentdecisions related to osteoporosis. NOF guidelines suggest consideringtreatment for postmenopausal women and men aged 50 or older presentingwith the following: History of hip or vertebral fracture. T-score = -2.5 (DXA) at the femoral neck, total hip, or spine, afterappropriate evaluation to exclude secondary causes. Low bone mass (T-score between -1.0 and -2.5 at the femoral neck or spine)AND a 10-year probability of a hip fracture = 3% OR a 10-year probabilityof a major osteoporosis-related fracture = 20% based on the [place]-adapted WHOalgorithm Please note that all treatment decisions require clinical judgment andconsideration of individual patient factors, including patientpreferences, co-morbidities, previous drug use, risk factors not capturedin the FRAX model (e.g., frailty, falls, vitamin D deficiency, increasedbone turnover, interval significant decline in bone density) and possibleunder- or over-estimation of fracture risk by FRAX. Optional alternative screening schedule based on eric Gómez., NEJMJanuary 2011 for patients with osteopenia (based on hip BMD T-score)is as follows: * advanced osteopenia (T scores -2.00 to -2.49), BMD testing every year * moderate osteopenia (T scores -1.50 to -1.99), BMD testing every 5years mild osteopenia or normal BMD (T scores -1.50 and higher), BMD testingevery 15 years -------- FINAL REPORT -------- Dictated By: Alina Nicole Dictated Date: 02/19/2025 14:38 ET Assigned Physician: Alina Nicole Reviewed and Electronically Signed By: Alina Nicole Signed Date: 02/19/2025 14:40 ET Workstation ID: [id number] Transcribed By: Self Edit Transcribed Date: 02/19/2025 14:38 ET Juanis Crawford MD IMG DXA PROCEDUR ES Final Result * XR Lumbar Spine 4+ Views (01/17/2025 2:44 PM EDT) Anatomical Region Laterality Modality Spine, L-spine Radiographic Diane ging 01/17/2025 8:05 PM EDT Impressions 01/17/2025 8:07 PM EDT 1. Compression deformity of the superior endplate of L3 which could represent an acute or subacute fracture. -------- FINAL REPORT -------- Dictated By: José Landis Dictated Date: 01/17/2025 20:05 ET Assigned Physician: José Landis Reviewed and Electronically Signed By: José Landis Signed Date: 01/17/2025 20:07 ET Workstation ID: [id number] Transcribed By: Self Edit Transcribed Date: 01/17/2025 20:05 ET Narrative 01/17/2025 8:07 PM EDT HISTORY: back pain TECHNIQUE: 4 views of the lumbar spine COMPARISON: Lumbar spine radiograph from 11/16/2017 FINDINGS: Irregularity at the superior endplate of L3 suggesting fracture. There is less than 25% vertebral body height loss. Decreased disc height at multiple levels with endplate sclerosis. There is grade 1 retrolisthesis of L3 on L4. Moderate facet arthropathy at multiple levels. Moderate neuroforaminal stenosis at multiple levels. Large amount stool throughout the colon. Procedure Note José Landis MD - 01/17/2025 HISTORY: back pain TECHNIQUE: 4 views of the lumbar spine COMPARISON: Lumbar spine radiograph from 11/16/2017 FINDINGS: Irregularity at the superior endplate of L3 suggesting fracture. There isless than 25% vertebral body height loss. Decreased disc height atmultiple levels with endplate sclerosis. There is grade 1 retrolisthesisof L3 on L4. Moderate facet arthropathy at multiple levels. Moderateneuroforaminal stenosis at multiple levels. Large amount stool throughoutthe colon. IMPRESSION: 1. Compression deformity of the superior endplate of L3 which couldrepresent an acute or subacute fracture. -------- FINAL REPORT -------- Dictated By: José Landis Dictated Date: 01/17/2025 20:05 ET Assigned Physician: José Landis Reviewed and Electronically Signed By: José Landis Signed Date: 01/17/2025 20:07 ET Workstation ID: [id number] Transcribed By: Self Edit Transcribed Date: 01/17/2025 20:05 ET Juanis Crawford MD IMG XR PROCEDURE S Final Result * XR Hip 2-3 Views Right (01/17/2025 2:44 PM EDT) Anatomical Region Laterality Modality Lower Extremities, Hip Right Radiograp hic Imaging 01/17/2025 8:00 PM EDT Impressions 01/17/2025 8:01 PM EDT No acute fracture or dislocation of the right hip. -------- FINAL REPORT -------- Dictated By: José Landis Dictated Date: 01/17/2025 20:00 ET Assigned Physician: José Landis Reviewed and Electronically Signed By: José Landis Signed Date: 01/17/2025 20:01 ET Workstation ID: [id number] Transcribed By: Self Edit Transcribed Date: 01/17/2025 20:00 ET Narrative 01/17/2025 8:01 PM EDT HISTORY: right hip pain TECHNIQUE: Frontal and lateral radiographs of the right hip.An AP radiograph of the pelvis was obtained to assess joint symmetry. COMPARISON: None FINDINGS: No fracture or dislocation is seen. The hip joint is well-maintained with normal alignment. The femoral head is well-seated within the acetabulum. Subchondral sclerosis of the superior acetabulum. Moderate degenerative changes of the lower lumbar spine. Procedure Note José Landis MD - 01/17/2025 HISTORY: right hip pain TECHNIQUE: Frontal and lateral radiographs of the right hip.An APradiograph of the pelvis was obtained to assess joint symmetry. COMPARISON: None FINDINGS: No fracture or dislocation is seen. The hip joint is well-maintained withnormal alignment. The femoral head is well-seated within the acetabulum.Subchondral sclerosis of the superior acetabulum. Moderate degenerativechanges of the lower lumbar spine. IMPRESSION: No acute fracture or dislocation of the right hip. -------- FINAL REPORT -------- Dictated By: José Landis Dictated Date: 01/17/2025 20:00 ET Assigned Physician: José Landis Reviewed and Electronically Signed By: José Landis Signed Date: 01/17/2025 20:01 ET Workstation ID: [id number] Transcribed By: Self Edit Transcribed Date: 01/17/2025 20:00 ET Juanis Crawford MD IMG XR PROCEDURE S Final Result * XR Knee 4+ Views Right (01/17/2025 2:44 PM EDT) Anatomical Region Laterality Modality Lower Extremities, Knee Right Radiogra phic Imaging 01/17/2025 7:56 PM EDT Impressions 01/17/2025 7:57 PM EDT No acute fracture or dislocation of the right knee. Osteoarthritic degenerative changes of the right knee. -------- FINAL REPORT -------- Dictated By: José Landis Dictated Date: 01/17/2025 19:56 ET Assigned Physician: José Landis Reviewed and Electronically Signed By: José Landis Signed Date: 01/17/2025 19:57 ET Workstation ID: [id number] Transcribed By: Self Edit Transcribed Date: 01/17/2025 19:56 ET Narrative 01/17/2025 7:57 PM EDT HISTORY: right knee pain TECHNIQUE: 4 views of the right knee COMPARISON: None FINDINGS: No acute fracture or dislocation is identified. There is moderate medial and lateral compartmental joint space narrowing with subchondral sclerosis. Small osteophytes at the medial femoral condyle and medial tibial plateau. No suprapatellar joint effusion. Enthesopathy of the patella. Procedure Note José Landis MD - 01/17/2025 HISTORY: right knee pain TECHNIQUE: 4 views of the right knee COMPARISON: None FINDINGS: No acute fracture or dislocation is identified. There is moderate medialand lateral compartmental joint space narrowing with subchondralsclerosis. Small osteophytes at the medial femoral condyle and medialtibial plateau. No suprapatellar joint effusion. Enthesopathy of thepatella. IMPRESSION: No acute fracture or dislocation of the right knee. Osteoarthritic degenerative changes of the right knee. -------- FINAL REPORT -------- Dictated By: José Landis Dictated Date: 01/17/2025 19:56 ET Assigned Physician: José Landis Reviewed and Electronically Signed By: José Landis Signed Date: 01/17/2025 19:57 ET Workstation ID: [id number] Transcribed By: Self Edit Transcribed Date: 01/17/2025 19:56 ET us Juanis Crawford MD IMG XR PROCEDURE S Final Result * Lipid panel with reflex to direct LDL (01/17/2025 1:57 PM EDT) Cholesterol 200 0 - 200 mg/dL LAB CHEMISTRY METHOD 01/17/2025 5:13 PM EDT [facility] Triglycerides 66 0 - 150 mg/dL LAB CHEMISTRY METHOD 01/17/2025 5:13 PM EDT [facility] HDL 89 >=40 mg/dL LAB CHEMISTRY METHOD 01/17/2025 5:13 PM EDT [facility] LDL Calculated 98 0 - 100 mg/dL LAB CHEMISTRY METHOD 01/17/2025 5:13 PM EDT [facility] Comment:Estimated LDL Calcul ated using equation: Total cholesterol - HDL cholesterol - (Triglycerides/5) VLDL Cholesterol Guille 13.2 mg/dL LAB CHEMISTRY METHOD 01/17/2025 5:13 PM EDT [facility] Non HDL Chol. (LDL+VLDL) 111 <145 mg/dL LAB CHEMISTRY METHOD 01/17/2025 5:13 PM EDT [facility] Chol/HDL Ratio 2.2 0.0 - 4.4 LAB CHEMISTRY METHOD 01/17/2025 5:13 PM EDT [facility] Blood Venous blood specimen / Unknown Venipuncture / Unknown 01/17/2025 1:57 PM EDT 01/17/2025 2:02 PM EDT Juanis Crawford MD LAB BLOOD ORDERA BLES Final Result [facility] [address] [place] [address], [place] [phone] * (ABNORMAL) Comprehensive metabolic panel (01/17/2025 1:57 PM EDT) Sodium 139 133 - 145 mmol/L LAB CHEMISTRY METHOD 01/17/2025 5:12 PM [facility] Potassium 4.0 3.5 - 5.5 mmol/L LAB CHEMISTRY METHOD 01/17/2025 5:12 PM [facility] Chloride 103 96 - 110 mmol/L LAB CHEMISTRY METHOD 01/17/2025 5:12 PM [facility] CO2 33(H) 21 - 32 mmol/L LAB CHEMISTRY METHOD 01/17/2025 5:12 PM [facility] Anion Gap 3 3 - 11 LAB CHEMISTRY METHOD 01/17/2025 5:12 PM [facility] Glucose 82 70 - 100 mg/dL LAB CHEMISTRY METHOD 01/17/2025 5:12 PM [facility] BUN 13 5 - 25 mg/dL LAB CHEMISTRY METHOD 01/17/2025 5:12 PM [facility] Creatinine 0.75 0.50 - 1.10 mg/dL LAB CHEMISTRY METHOD 01/17/2025 5:12 PM [facility] eGFR 84 >=60 mL/min/1. 73m2 LAB CHEMISTRY METHOD 01/17/2025 5:12 PM [facility] Comment:Calculation based on the Chronic Kidney Disease Epidemiology Collaboration (CKD-EPI) equation refit without adjustment for race. BUN/Creatinine Ratio 17.3 LAB CHEMISTRY METHOD 01/17/2025 5:12 PM [facility] Calcium 9.3 8.5 - 10.5 mg/dL LAB CHEMISTRY METHOD 01/17/2025 5:12 PM [facility] AST (SGOT) 24 10 - 42 unit/L LAB CHEMISTRY METHOD 01/17/2025 5:12 PM [facility] ALT (SGPT) 22 10 - 60 unit/L LAB CHEMISTRY METHOD 01/17/2025 5:12 PM [facility] Alkaline Phosphatase 91 42 - 121 unit/L LAB CHEMISTRY METHOD 01/17/2025 5:12 PM [facility] Total Protein 6.3 6.0 - 8.0 g/dL LAB CHEMISTRY METHOD 01/17/2025 5:12 PM [facility] Albumin 3.7 3.2 - 5.0 g/dL LAB CHEMISTRY METHOD 01/17/2025 5:12 PM [facility] Total Bilirubin 1.1 0.0 - 1.4 mg/dL LAB CHEMISTRY METHOD 01/17/2025 5:12 PM [facility] Blood Venous blood specimen / Unknown Venipuncture / Unknown 01/17/2025 1:57 PM EDT 01/17/2025 2:02 PM EDT Juanis Crawford MD LAB BLOOD ORDERA BLES Final Result [facility] [address] [place] [address], [place] [phone] * MG Mammo Digital Screening w Ariel bilat (07/07/2024 10:33 AM EST) Anatomical Region Laterality Modality Breast Bilateral Mammography 07/07/2024 3:50 PM EST Impressions 07/07/2024 3:52 PM EST No mammographic evidence for malignancy. BI-RADS CATEGORY: 1 - NEGATIVE RECOMMENDATION: Screening bilateral mammogram is recommended in 1 year. Mammo Location: [facility], [address] [place] [address], [id number], . -------- FINAL REPORT -------- Dictated By: Sandra tS Dictated Date: 07/07/2024 15:50 ET Assigned Physician: Sandra St Reviewed and Electronically Signed By: Sandra St Signed Date: 07/07/2024 15:52 ET Workstation ID: [id number] Transcribed By: Self Edit Transcribed Date: 07/07/2024 [...] is recommended in 1 year. Mammo Location: [facility], [address] [place] [address], [id number], . -------- FINAL REPORT -------- Dictated By: Sandra St Dictated Date: 07/07/2024 15:50 ET Assigned Physician: Sandra St Reviewed and Electronically Signed By: Sandra St Signed Date: 07/07/2024 15:52 ET Workstation ID: [id number] Transcribed By: Self Edit Transcribed Date: 07/07/2024 15:50 ET Juanis Crawford MD IM BI PROCEDURE S Final Result * Hepatitis C Screening (10/20/2013) Hepatitis C Screening Abstracted Historical Provider HEALTH MAINTENANCE Final Result from Last 3 Months or Most Recently Relevant to Health Maintenance Insurance [employer] MED[employer]ARE Care Teams Health Education Director Relationship Specialty Start Date End Date Juanis Crawford MD [address] [place] [phone] PCP - General 08/05/22
--- OUTSIDE RECORDS SUMMARY | 2025-03-11 11:13 | XMS_ITS | Patient Health Record ---
Author Organization [facility] Address [address] [place] [id number] Care Team Providers Care Apartment Maintenance Technician Name Role Phone Nehemiah Sanford Unavailable [phone] Reason For Referral No Information Plan Of Treatment No Information
== END 2025-03-11 11:10 | disposition home or self-care (01) ==
PROVIDERS: PCP Family Medicine; Visit Provider Nurse Practitioner Family
DX: M54.9 Dorsalgia, unspecified (principal); G89.29 Other chronic pain

== ENCOUNTER → 2025-03-11 09:47 | Outpatient (BNVA) | payer MEDICARE, SELFPAY | PROVIDERS: PCP Family Medicine; Visit Provider Nurse Practitioner Family | DX: M54.31 Sciatica, right side (principal); M54.32 Sciatica, left side; G89.29 Other chronic pain | CPT/HCPCS: 99212 ==